=== PATIENT | male | born 1935 | race Caucasian/White ===

== ENCOUNTER 2016-09-09 16:17 | Inpatient (IN) | payer MEDICARE, MEDICAID ==
--- NOTE | 2016-09-09 16:27 | ED Physician Chart ---
Chief Complaint/HPI - Patient Information Date Seen:: 09/09/16 Time Seen:: 16:17 Chief Complaint:: agitation History of Present Illness:: 80-year-old male from care facility with increasing, constant, moderate to severe, agitation 3 days. Has associated uncooperative behavior where he will not take his medications. History limited due to patient's uncooperative behavior History provided by EMS and EMS run sheet Historian:: EMS Review:: Nurse's Note Reviewed, EMS run form Reviewed, Transfer documents Reviewed Review of Systems - Review of Systems Other: Complete system review otherwise unremarkable except as noted in history of present illness. Past Medical History - Past Medical History Past Medical History: HTN, DM, CAD, CVA/TIA, Dyslipidemia, Seizures Family History: None Social History: Non Smoker, No Alcohol, No Drug Use, Care Facility Surgical History: None Medication: Reviewed Family Medical History - Family Member Mother History Unknown: Yes Ethnicity: Physical Exam - Physical Examination Other:: INITIAL VITAL SIGNS: Reviewed by me GENERAL: Alert and interactive but mostly cooperative. No acute distress HEAD: Head is normocephalic and atraumatic EYES: EOMI. PERRL. No scleral icterus. No conjunctival injection ENT: Dry mucous membranes NECK: Supple. No masses. Full range of motion RESPIRATORY: No tachypnea. Clear breath sounds bilaterally. No wheezing, rales, or rhonchi CV: Regular rate and rhythm. No murmurs, rubs, or gallops ABDOMEN: Soft, non-distended, non-tender. No guarding. No rebound. No masses. EXTREMITIES: No deformity. No cyanosis. No edema. SKIN: Warm and dry. No obvious rashes. NEUROLOGIC: Alert and oriented. Face is symmetric. Speech is normal. Left- sided weakness. Gross motor and sensory distally intact. Labs/Radiology/EKG Results - Lab Results Results: Lab Results 09/09/16 09/09/16 Range/Units 16:53 16:53 WBC 7.2 (4.8-10.8) Th/cmm RBC 4.87 (3.80-5.80) Mil/cmm Hgb 12.9 (12.6-17.4) gm/dL Hct 39.7 (39.0-49.0) % MCV 81.4 (80-99) fl MCH 26.5 L (27.0-31.0) pg MCHC Differential 32.5 (28.0-36.0) pg RDW 15.8 (11.5-20.0) % Plt Count 288 (150-400) Th/cmm MPV 7.5 fl Neutrophils % 62.9 (40.0-80.0) % Lymphocytes % 24.6 (20.0-50.0) % Monocytes % 10.7 H (2.0-10.0) % Eosinophils % 1.3 (0.0-5.0) % Basophils % 0.5 (0.0-2.0) % Sodium 135 L (136-145) mEq/L Potassium 4.2 (3.5-5.1) mEq/L Chloride 102 (98-107) mEq/L Carbon Dioxide 25.1 (21.0-31.0) mEq/L Anion Gap 12.1 (7.0-16.0) BUN 29 H (7-25) mg/dL Creatinine 1.4 H (0.7-1.3) mg/dL Est GFR ( Amer) TNP Est GFR (Non-Af Amer) TNP BUN/Creatinine Ratio 20.7 Glucose 159 H (70-105) mg/dL Calcium 9.5 (8.6-10.3) mg/dL Triglycerides 161 H (<150) mg/dL Cholesterol 130 (<200) mg/dL LDL Cholesterol Direct 76 (75-193) mg/dL HDL Cholesterol 33 (23-92) mg/dL - EKG Interpretations Comments:: 12-lead EKG Interpretation by Richie Jenkins MD: Normal Sinus Rhythm with ventricular rate of 81 beats per minute Normal axis Normal intervals No acute ST or T wave changes. No obvious STEMI ED Septic Shock - . Is Septic Shock (SBP<90, OR Lactate>4 mmol\L) present?: No Reassessment (Disposition) - Reassessment Reassessment:: The patient has very dry mucous membranes. BUN/creatinine both elevated. Refusing medications and oral intake. Appears dehydrated. Given IV fluids here in the ER. Patient will need further rehydration prior to admission to the geriatric psych unit. Discussed with admitting physician. Patient of her dehydration Reassessment Condition:: Unchanged - Diagnosis Diagnosis:: Acute kidney injury secondary to acute dehydration Elevated BUN Diabetes mellitus type 2 Hypertension - Aftercare/Follow up Instructions Aftercare/Follow-Up Instructions:: Counseled pt regarding lab results/diagnosis & need follow up, Refer to Discharge Instructions - Patient Disposition Discharge/Transfer:: Acute Care w/in this hosp Admitted to:: [facility] Admitting Medical Physician:: Buck Christian Time:: 19:45 Condition at Disposition:: Stable ED Discharge Plan - Patient Disposition Admit/Discharge/Transfer: Acute Care w/in this hosp
[2016-09-09 17:00] LABS: % BASOPHILS 0.5 % (0.0-2.0); % EOSINOPHILS 1.3 % (0.0-5.0); % LYMPHOCYTES 24.6 % (20.0-50.0); % MONOCYTES 10.7 % (2.0-10.0); % NEUTROPHILS 62.9 % (40.0-80.0); HEMATOCRIT 39.7 % (39.0-49.0); HEMOGLOBIN 12.9 gm/dL (12.6-17.4); MEAN CELL VOLUME 81.4 fl (80-99); MEAN CORPUSCULAR HEMOGLOBIN 26.5 pg (27.0-31.0); MEAN CORPUSCULAR HGB CONC 32.5 pg (28.0-36.0); MEAN PLATELET VOLUME 7.5 fl; NEUTROPHILE ABSOLUTE 4.5 Th/cmm (1.8-8.0); PLATELET COUNT 288 Th/cmm (150-400); RED BLOOD COUNT 4.87 Mil/cmm (3.80-5.80); RED CELL DISTRIBUTION WIDTH 15.8 % (11.5-20.0); WHITE BLOOD COUNT 7.2 Th/cmm (4.8-10.8)
[2016-09-09 17:15] LABS: ANION GAP 12.1 (7.0-16.0); BUN - UREA NITROGEN 29 mg/dL (7-25); BUN/CREATININE RATIO 20.7; CALCIUM SERUM 9.5 mg/dL (8.6-10.3); CARBON DIOXIDE 25.1 mEq/L (21.0-31.0); CHLORIDE 102 mEq/L (98-107); CHOLESTEROL 130 mg/dL (<200); CREATININE - SERUM 1.4 mg/dL (0.7-1.3); GLUCOSE 159 mg/dL (70-105); POTASSIUM SERUM 4.2 mEq/L (3.5-5.1); SODIUM SERUM 135 mEq/L (136-145); TRIGLYCERIDES 161 mg/dL (<150)
[2016-09-09] MEDS ORDERED: Sodium Chloride 0.9% 1,000 ML IV ONE (18:49)
[2016-09-09] MEDS ORDERED: D5-0.45NS 1,000 ML IV SCH ×2 (19:57→22:45)
[2016-09-09] MEDS ORDERED: Fleet Enema 135 mL RC PRN (20:41)
[2016-09-09] MEDS: INSULIN ASPART, RECOMBINANT 100 UNITS/ML SUBQ SCH (22:18)
[2016-09-09 23:11] VITALS: BP 121/51
[2016-09-10 05:26] LABS: % BASOPHILS 0.3 % (0.0-2.0); % EOSINOPHILS 2.6 % (0.0-5.0); % LYMPHOCYTES 32.7 % (20.0-50.0); % NEUTROPHILS 50.4 % (40.0-80.0); HEMATOCRIT 36.9 % (39.0-49.0); HEMOGLOBIN 12.2 gm/dL (12.6-17.4); MEAN CELL VOLUME 81.5 fl (80-99); MEAN CORPUSCULAR HEMOGLOBIN 26.9 pg (27.0-31.0); MEAN PLATELET VOLUME 7.4 fl; NEUTROPHILE ABSOLUTE 3.4 Th/cmm (1.8-8.0); RED BLOOD COUNT 4.53 Mil/cmm (3.80-5.80); RED CELL DISTRIBUTION WIDTH 15.6 % (11.5-20.0); WHITE BLOOD COUNT 6.9 Th/cmm (4.8-10.8)
[2016-09-10 05:30] LABS: PLATELET COUNT 219 Th/cmm (150-400)
[2016-09-10 05:50] LABS: ALKALINE PHOSPHATASE 80 U/L (34-104); ANION GAP 5.2 (7.0-16.0); BILIRUBIN,TOTAL 0.3 mg/dL (0.3-1.0); BUN - UREA NITROGEN 23 mg/dL (7-25); BUN/CREATININE RATIO 25.6; CALCIUM SERUM 8.8 mg/dL (8.6-10.3); CARBON DIOXIDE 26.6 mEq/L (21.0-31.0); CHLORIDE 108 mEq/L (98-107); CREATININE - SERUM 0.9 mg/dL (0.7-1.3); GLUCOSE 107 mg/dL (70-105); POTASSIUM SERUM 3.8 mEq/L (3.5-5.1); SGOT 17 U/L (13-39); SGPT/ALT 19 U/L (7-52); SODIUM SERUM 136 mEq/L (136-145)
[2016-09-10] MEDS: INSULIN ASPART, RECOMBINANT 100 UNITS/ML SUBQ SCH ×3 (06:48→16:42)
[2016-09-10 06:52] LABS: URINE BILIRUBIN NEGATIVE (NEGATIVE); URINE COLOR YELLOW; URINE GLUCOSE (UA) NEGATIVE (NEGATIVE); URINE KETONE NEGATIVE (NEGATIVE)
[2016-09-10 06:53] LABS: URINE BLOOD TRACE (NEGATIVE); URINE PH 5.5; URINE PROTEIN NEGATIVE (NEGATIVE); URINE UROBILINOGEN 0.2 E.U./dL (0.2 - 1.0)
[2016-09-10 07:04] LABS: URINE BACTERIA OCCASIONAL /hpf (NONE SEEN); URINE EPITHELIAL CELLS RARE /lpf (FEW); URINE RBC 0-2 /hpf (0-5)
[2016-09-10] MEDS ORDERED: Pneumococcal Vaccine 0.5 mL Vial IM ONE (07:07)
--- NOTE | 2016-09-10 08:06 | Admit Criteria Form ---
Admit Criteria Forms - Admit Criteria Diagnosis: RENAL FAILURE, ACUTE Clinical Indications for Admission to Inpatient Care ( Place 'X' for any and all applicable criteria): Admission is indicated for ALL (if I & II) or III of the following [A](2)(3)(4)( 5)(6)(7): [ ]I. Acute renal failure as indicated by ANY ONE of the following: [ ]a) A 3-fold rise in serum creatinine from baseline [ ]b) Serum creatinine greater than 4 mg/dL (354 micromoles/L) with an acute rise greater than 0.5 mg/dL (44.2 micromoles/L) [ ]c) Reduction of more than 75% in estimated glomerular filtration rate from baseline [ ]d) Estimated glomerular filtration rate less than 35 mL/min/1.73m2 (0.59mL/sec/1.73m2)in a child up to 18 years of age [ ]e) Anuria indicated by ALL of the following: [ ]i) Adequate volume status [ ]ii) Cessation of urine output indicated by ANY ONE of the following: [ ]1) Urine output less than 0.3 mL/kg/hr for 24 hours [ ]2) Anuria (urine output less than 0.1 mL/kg/ hr) for 12 hours [ ] II. Renal failure cannot be managed in an outpatient setting or observational care setting as indicating by ANY ONE of the following: [ ]a) Altered mental status that is severe or persistent [ ]b) Volume overload or Respiratory distress (eg, clinically significant pulmonary edema) that is severe or persistent [ ]c) Cardiac arrhythmias of immediate concern [ ]d) Hemodynamic instability [ ]e) Clinically significant electrolyte abnormality that requires inpatient care (eg, hyperkalemia with severe ECG findings)[B] [ ]f) Clinically significant metabolic abnormality (eg, acidosis) that is severe or persistent [ ]g) Acute treatment of renal failure (eg, renal replacement therapy) not feasible or appropriate in observational care setting [ ]h) Clinical situation too unstable or uncertain (eg, inadequate urine output, ongoing decline in renal function, etiology unclear) [ ]i) Necessary support and caregiver ability to comply with outpatient treatment cannot be arranged in observation care timeframe (eg, within 24 hours) [ ]j) Other significant finding or clinical condition judged not to be within scope of observation care [X ]III.General contraindications and/or Inappropriate clinical situations for Observational Care in patients with Acute Renal Failure, when ANY ONE of the following is required: [X ]a) Prediction of prolongation of LOS based on ANY ONE of the following may be considered as a contraindication for observational care 2, 3, 4, 5, 6, 7, 8 , 9, 10, 11 [X ]i) Age > 65 yrs. [ ]ii) Patient arriving by ambulance [ ]iii) Patient with high acuity [ ]iv) Patient requiring vital sign monitoring [ ]v) Patient on IV medication [ ]b) Systolic blood pressures 180mmHg 3,12 [ ]c) Patient with altered mental status including delirium and other alteration of consciousness, (3) [ ]d) Patient whose discharge disposition will be to a long term home or rehabilitation home should not be managed in Emergency Department Observation Unit. CMS rule requires 3 days hospital stay before such placement.3,13 [ ]e) Patient with failure to thrive due to broad array of etiologies 3, 16,17 [ ]f) Inability to ambulate 3,14 Extended stay beyond goal length of stay may be needed for(13) [ ]a) Continuing uremic complications [ ]b) Care for comorbidities [ ]c) acute renal failure [ ]d) Need for dialysis The original [employer] content created by [employer] has been revised. The portions of the content which have been revised are identified through the use of italic text or in bold, and [facility] has neither reviewed nor approved the modified material. All other unmodified content is copyright [employer]. Please see references footnoted in the original [facility] edition 2016 Admit Criteria Met?: Yes
[2016-09-10] MEDS ORDERED: Multivitamin w/ Minerals Tab PO SCH (09:00)
[2016-09-10] MEDS ORDERED: Atorvastatin Calcium 10 MG TAB PO SCH (09:00)
--- NOTE | 2016-09-10 11:11 | Consultation ---
DATE OF CONSULTATION: 09/10/2016 AGE: 80. SEX: Male. PHYSICIAN: Dr. Christian, also Dr. Lee. CHIEF COMPLAINT: Uncooperative and noncompliant with medications and treatment. HISTORY OF PRESENT ILLNESS: The patient is a 80-year-old male, who is a resident of [facility]. I evaluated the patient yesterday in the long term and the patient was severely depressed and he was feeling hopeless and helpless and almost tearful during interview. The patient also was slightly paranoid. He also was having difficulty with his mood. The patient also has 4 children and they are not visiting him. The patient also has trouble with sleeping at night and has been having lack of motivations and lack of energy. Also, the patient has been refusing to take any psychotropic medications. PAST PSYCHIATRIC HISTORY: The patient has history of [id number] dementia. PAST MEDICAL HISTORY: The patient has diagnosis of diabetes mellitus, hypertension, hypercholesterolemia, status post CVA. SOCIAL HISTORY: The patient lives in [facility]. No known alcohol or drug use. MENTAL STATUS EXAM: The patient appears his stated age. Anxious, sad affect. In a depressed mood. Speaks mainly Moldovan. Thought processes mainly goal directed. The patient denies hallucinations or delusions. He denies suicidal or homicide. The patient is alert and oriented to time, place, person, and situation. Impaired immediate memory, but intact remote and recent memories. Fair insight. Poor judgment. TREATMENT PLAN: We will monitor the patient's condition and behavior closely. We will start individual as well as milieu psychotherapy. We will also monitor psychotropic medications. Also, the patient is a candidate for Geropsych program. Thanks to Dr. Christian, and we will follow up with you. JOB# [id number]
--- NOTE | 2016-09-10 12:13 | History & Physical ---
ADMIT DATE: 09/10/2016 PATIENT IDENTIFICATION: A 80-year-old male. CHIEF COMPLAINT: "I am okay." HISTORY OF PRESENT ILLNESS: A 80-year-old [place] male who resides at a residential, has multiple medical problems, which include diabetes, hypertension, hyperlipidemia, dementia, DJD, peripheral vascular disease, coronary artery disease, who was brought into the Emergency Room from residential for evaluation of increasing agitation and refusing to take medications and not eating and drinking. The patient was worked up in the Emergency Room where the patient was noted to have elevated BUN and creatinine and the patient was combative and refusing not to take any medicine. In the view of her impending worsening dehydration, the patient was advised to be admitted in the hospital for further treatment. PAST MEDICAL HISTORY: Remarkable for: 1. Diabetes. 2. Hypertension. 3. Hyperlipidemia. 4. Coronary artery disease. 5. Seizure disorder. 6. Alzheimer dementia. 7. Peripheral vascular disease. 8. History of CVA. 9. BPH. MEDICATIONS: At residential taking Atarax, Flomax, multivitamin, metoprolol, lisinopril, Keppra, Neurontin, flaxseed enema, Aricept, Colace, Plavix, atorvastatin, sitagliptin, metformin, magnesium, sliding scale insulin, Dexilant, Tylenol. ALLERGIES: The patient is not allergic to medications. SOCIAL HISTORY: The patient resides in a residential. No documented smoking cigarette, alcohol or drug use. FAMILY MEDICAL HISTORY: Unavailable. REVIEW OF SYSTEMS: Unable to get meaningful history from the patient. PHYSICAL EXAMINATION: GENERAL: Alert, awake, lying in the bed, follows 1-step command. VITAL SIGNS: Temperature 97.6, pulse 70, respiratory rate 18, blood pressure 110/60. SKIN: Warm to touch. HEENT: Normocephalic, atraumatic. Extraocular muscles are intact. Tongue was pink and coated. Poor dentition noted. No oral lesion, no exudate. No sinus tenderness, unable to visualize tympanic membranes. NECK: Supple, no JVD, no lymphadenopathy, thyromegaly or carotid bruit. HEART: Both heart sounds are regular. Grade 2/6 systolic murmur noted. CHEST: Lung equal in expansion, no wheezing, no crackles. ABDOMEN: Soft. No guarding, no rigidity. Liver and spleen palpable. No palpable mass. EXTREMITIES: No edema, no cyanosis, no clubbing. Peripheral pulses +1. No calf tenderness noted. NEUROLOGIC: Alert, awake, follows commands. Decreased power throughout the upper and lower extremities noted. AVAILABLE DIAGNOSTIC DATA: Performed in the Emergency Room, white count of 7.2, hemoglobin 12.9, platelet count of 288. BUN and creatinine is 29 and 1.4, potassium of 4.2, glucose of 159. The patient's urinalysis remarkable for 10-25 wbc with few yeast noted, blood was trace, protein was negative. Urine was cloudy in clarity. Chest x-ray has no infiltrate, no congestion. EKG is nondiagnostic for any acute myocardial ischemia. CLINICAL IMPRESSION: 1. Acute kidney injury secondary to poor p.o. intake, causing him prerenal azotemia. 2. Impending dehydration. 3. Beatriz urinary tract infection. 4. Diabetes mellitus. 5. Hypertension. 6. Hyperlipidemia. 7. Dementia, Alzheimer's type. 8. Psychotic disorder exacerbation with increasing agitation and refusing to take medication. 9. Degenerative joint disease. 9. History of cerebrovascular accident. 10. Seizure disorder. 11. High risk for fall. PLAN: The patient was admitted by fl overnight. The patient was given IV fluids. The patient has responded fairly well and creatinine has come down to normal. The patient will be placed on p.o. Diflucan and the patient will be evaluated by the psychiatrist and once the patient is accepted, the patient will be transferred to Geropsych Unit. Meanwhile resume all his home medication as patient was receiving along with new prescription of Diflucan and we will discuss with psychiatrist about further plan and transferring him to Geropsych Unit. JOB# [id number]
[2016-09-10 14:21] LABS: HEP B CORE IGM Negative (Negative); HEP C ANTIBODY 0.2 s/co ratio (0.0-0.9)
[2016-09-10] MEDS ORDERED: Escitalopram Oxalate 5 mg Tab PO SCH (21:00)
== END 2016-09-10 18:15 | DRG 683 ==
LOC: ER 16:17 → MSI 19:50
PROVIDERS: ADMIT Internal Medicine; ATTEND Internal Medicine
DX: N17.9 Acute kidney failure, unspecified (principal); B37.49 Other urogenital candidiasis; E11.51 Type 2 diabetes mellitus with diabetic peripheral angiopathy without gangrene; G30.9 Alzheimer's disease, unspecified; I10 Essential (primary) hypertension; F02.80 Dementia in other diseases classified elsewhere, unspecified severity, without behavioral disturbance, psychotic disturbance, mood disturbance, and anxiety; I25.10 Atherosclerotic heart disease of native coronary artery without angina pectoris; E11.9 Type 2 diabetes mellitus without complications; E78.5 Hyperlipidemia, unspecified; M19.90 Unspecified osteoarthritis, unspecified site; G40.909 Epilepsy, unspecified, not intractable, without status epilepticus; N40.0 Benign prostatic hyperplasia without lower urinary tract symptoms; E86.0 Dehydration; F29 Unspecified psychosis not due to a substance or known physiological condition; Z86.73 Personal history of transient ischemic attack (TIA), and cerebral infarction without residual deficits; Z79.4 Long term (current) use of insulin; Z91.14 Patient's other noncompliance with medication regimen
CPT/HCPCS: 36415-UA; 80048-TC; 80053-TC; 80061-TC; 80074-90; 81001-TC; 82948-90; 84443-TC; 85025-TC; 86592-TC; 87086-90; 93005; 96374; 96375; J1815; J7030; Z7610